=== PATIENT | female | born 1935 | race Caucasian/White ===

== ENCOUNTER 2022-04-24 11:14 | Outpatient (CLI) | payer MEDICARE, SELFPAY ==
--- NOTE | 2022-04-24 11:42 | ECG_ITS ---
Measurements Intervals [place] Rate: 70 P: 2 GA: 141 QRS: -8 QRSD: 92 T: -3 QT: 362 QTc: 393 Interpretive Statements SINUS RHYTHM WITH SINUS ARRHYTHMIA BASELINE ARTIFACT LOW QRS VOLTAGE IN PRECORDIAL LEADS BORDERLINE ECG NO PREVIOUS ECG AVAILABLE FOR COMPARISON Electronically Signed On 04-24-2022 16:20:28 CDT by Baldemar Ventura M.D.
== END 2022-04-24 11:15 | disposition home or self-care (01) ==
PROVIDERS: Visit Provider Neurological Surgery
DX: M48.061 Spinal stenosis, lumbar region without neurogenic claudication (principal); Z01.818 Encounter for other preprocedural examination
CPT/HCPCS: 36415; 86850; 86900; 86901; 93005

== ENCOUNTER 2022-05-02 15:32 | Inpatient (IN) | payer MEDICARE, SELFPAY ==
[2022-04-20 14:54] VITALS: BMI 21.2
--- NOTE | 2022-04-20 15:31 | PC.NURSE ---
Report to the Outpatient Waiting Room, entrance under the green pavilion located off [facility], at time __7:30AM on date ___05/01/22____. Planned Procedure Time: __9:30AM . Time changes happen often and if your time is changed the preop area will call you the afternoon before. - You and your visitor will be asked to self-screen and do not enter if you have any COVID symptoms. - We encourage only one visitor and NO visitors under age 16 are allowed at this time. Your visitor will receive communication by the phone number that is given day of service. - The patient visitor is requested to social distance or may leave the building when not with patient due to restrictions. - A mask is required within the hospital. Patients may have clear liquids (water, carbonated beverages, clear teas, apple juice) until 3 hours prior to surgery with a maximum of 20 ounces. - No food from midnight until time of surgery. Take the following medications with a SIP of water the morning of surgery: ___MORNING EYE DROPS Medications to discontinue per physician ___HOLD ASPIRIN PERDR ASTERS(PT STATES 7 DAYS PRE-OPA0 Date to take last dose Please no make-up, nail ghanaian, hairspray, perfume, deodorant, or body powder the day of surgery. No jewelry (including any body piercings) or valuables the day of surgery, leave them at home. Please take a shower or bath the night before, or the morning of, surgery with an antibacterial soap. Wear comfortable, loose fitting clothing. Children are encouraged to wear pajamas. - Jewelry must be removed prior to entering the operating room. Rings and piercings that are not removed may be cut off. - The hospital will not accept responsibility for valuables. - Please leave all valuables, including medications, at home the day of surgery. If you are going home after surgery, a licensed services delivery driver must drive you home. - NO public transportation without another adult. - We recommend that an adult stay with you for 24 hours following discharge. - We also recommend that you do not drive, make important decision, drink alcoholic beverages, or take any drugs that were not prescribed by your health care provider for at least 24 hours after your discharge time. For Pediatric surgeries, we recommend two adults accompany the child home. Follow any additional instructions given to you from your surgeon. If you or anyone in your household have experienced Covid symptoms in the past week, please notify your surgeon or the nurse liaison at the phone number below for possible testing. Telephone instructions given to and asked if any additional questions and then verbalized understanding. Patient advised to call surgeon office or pre surgery nurse liaison [phone] if any additional questions.
--- NOTE | 2022-04-20 15:33 | PC.NURSE ---
Report to the Outpatient Waiting Room, entrance under the green pavilion located off [facility], at time _7:30AM on date __05/01/22 . Planned Procedure Time: __9:30AM . Time changes happen often and if your time is changed the preop area will call you the afternoon before. - You and your visitor will be asked to self-screen and do not enter if you have any COVID symptoms. - We encourage only one visitor and NO visitors under age 16 are allowed at this time. Your visitor will receive communication by the phone number that is given day of service. - The patient visitor is requested to social distance or may leave the building when not with patient due to restrictions. - A mask is required within the hospital. Patients may have clear liquids (water, carbonated beverages, clear teas, apple juice) until 3 hours prior to surgery with a maximum of 20 ounces. - No food from midnight until time of surgery. Take the following medications with a SIP of water the morning of surgery: ___MORNING EYE DROPS Medications to discontinue per physician __HOLD ASPIRIN PER DR TREVIÑO(PT STATES -7 DAYS PRE-OP)___HOLD VITAMINS/SUPPLEMENTS 3 DAYS PRE-OP- LAST DOSE 04/28/22 Please no make-up, nail georgian, hairspray, perfume, deodorant, or body powder the day of surgery. No jewelry (including any body piercings) or valuables the day of surgery, leave them at home. Please take a shower or bath the night before, or the morning of, surgery with an antibacterial soap. Wear comfortable, loose fitting clothing. Children are encouraged to wear pajamas. - Jewelry must be removed prior to entering the operating room. Rings and piercings that are not removed may be cut off. - The hospital will not accept responsibility for valuables. - Please leave all valuables, including medications, at home the day of surgery. If you are going home after surgery, a licensed long haul truck driver must drive you home. - NO public transportation without another adult. - We recommend that an adult stay with you for 24 hours following discharge. - We also recommend that you do not drive, make important decision, drink alcoholic beverages, or take any drugs that were not prescribed by your health care provider for at least 24 hours after your discharge time. Follow any additional instructions given to you from your surgeon. If you or anyone in your household have experienced Covid symptoms in the past week, please notify your surgeon or the nurse liaison at the phone number below for possible testing. Telephone instructions given to __PATIENT and asked if any additional questions and then verbalized understanding. Patient advised to call surgeon office or pre surgery nurse liaison [phone] if any additional questions.
[2022-05-01] VITALS (13 sets, daily range): BP systolic 84–166; BP diastolic 52–84; PULSE 57–74; RESP 12–18; TEMP 36.2–37.1; O2SAT 97–100; BMI 22.1
[2022-05-01] MEDS: LACTATED RINGERS 1,000 ML 30 ML IV CONT ×2 (08:46→12:32)
--- NOTE | 2022-05-01 09:02 | PM.IMHP ---
H&P: HPI History of Present Illness Date/Time: 05/01/22 09:02 Chief Complaint: Back and leg pain Narrative: Sary is an 86-year-old female with back and leg pain related to foraminal stenosis on the right at L4-5 and L5-S1 who presents for far lateral foraminotomies and microdiskectomies at those levels. She has not changed appreciably since we saw her last. She does not have specific muscle group weakness. She has occasional dermatomal numbness. She is not having new bowel or bladder difficulty. Review of Systems Review of Systems: Patient denies shortness of breath, cough, fever, chills, nausea, vomiting, weight loss, weight gain, chest pain, dysuria. She has back and leg pain as above. Review of systems otherwise negative on 12 systems except as noted elsewhere. [facility] Past Medical History Medical History Basal cell carcinoma Carpal tunnel syndrome Surgical History Surgical History H/O: hysterectomy Previous back surgery Family History Family History Other Depression Diabetes mellitus Heart disease Social History Social History Smoking status: Never smoker Alcohol intake: never Substance use: never Substance use type: does not use Living arrangements: alone Spiritual care concerns: No Meds Home Medications and Allergies Home Medications Medication Instructions Recorded Confirmed Type aspirin 325 mg tablet 325 mg PO DAILY 01/23/22 04/20/22 History bacitracin zinc 500 unit/gram 1 applic topical BID 01/23/22 04/20/22 History topical ointment gabapentin 300 mg capsule 300 mg PO BID 01/23/22 04/20/22 History latanoprost 0.005 % eye drops 1 drp EACH EYE DAILY 01/23/22 05/01/22 History levobunolol 0.5 % eye drops 1 drp EACH EYE DAILY 01/23/22 05/01/22 History melatonin 3 mg capsule 3 mg PO QHS 01/23/22 04/20/22 History naproxen sodium 220 mg capsule 220 mg PO BID PRN Pain 01/23/22 04/20/22 History (Aleve) omega 2-gok-lbe-fish oil 300 1 cap PO DAILY 01/23/22 04/20/22 History mg-1,000 mg capsule (Fish Oil) coenzyme Q10 100 mg capsule 100 mg PO DAILY 04/20/22 04/20/22 History (CoQ-10) lisinopril 5 mg tablet 5 mg PO HS 04/20/22 04/20/22 History magnesium oxide 250 mg PO DAILY 04/20/22 04/20/22 History rosuvastatin 20 mg tablet 20 mg PO DAILY 04/20/22 04/20/22 History vitamin E (dl, acetate) 180 mg 180 mg PO DAILY 04/20/22 04/20/22 History (400 unit) capsule zinc gluconate 50 mg tablet 50 mg PO DAILY 04/20/22 04/20/22 History Allergies Allergy/AdvReac Type Severity Reaction Status Date / Time codeine AdvReac Mild nausea/vomi Verified 05/01/22 08:46 ting Vital Signs Vital Signs - 24 hr 05/01/22 08:42 Temperature 98.7 F Pulse Rate 73 Respiratory Rate 14 Blood Pressure 158/80 H Pulse Oximetry 100 Oxygen Delivery Room Air Exam Neuro: Other: Strength is 5/5 in all muscle groups of the bilateral lower extremities. Sensation is intact to light touch throughout the lower extremities. Clear to auscultation Regular rate and rhythm Assessment and Plan Assessment and plan (1) Foraminal stenosis of lumbar region: Code(s): M48.061 - Spinal stenosis, lumbar region without neurogenic claudication Status: Acute Plan Sary is an 86-year-old female who presents for right L4-5 and L5-S1 far lateral foraminotomy and microdiskectomy. I described to her again that operation, its risks, potential benefits, the operative and postoperative course in detail answered all her questions personally. She indicates understanding and elects to proceed with that operation.
--- NOTE | 2022-05-01 09:03 | WPDHPUPDATE1 ---
History and Physical Update Update Date/Time: 05/01/22 09:03 History and Physical has been reviewed, including an updated exam of the patient. There are NO changes in the patient's condition. Risks, benefits, and alternatives have been discussed and questions answered. Patient agrees to proceed with procedure.
--- NOTE | 2022-05-01 09:08 | WPDANESEPPF ---
Anes - Initial Pre Proc Eval Procedure: Operation Date: 05/01/22 09:30 Proposed Procedures p Right L4-5, L5-S1 Far Lateral Foraminotomy - Maximo Lester MD Date/Time: 05/01/22 09:08 Surgeon: Maximo Lester MD Pre Op Diagnosis: Rt L4-5 L5-S1 NFN Patient Data Age: 86 Gender: F Height: 1.47 m Weight: 48 kg Last Vital Signs Temp 37.1 C 05/01/22 08:42 Pulse 73 05/01/22 08:42 Resp 14 05/01/22 08:42 BP 158/80 H 05/01/22 08:42 Pulse Ox 100 05/01/22 08:42 O2 Del Method Room Air 05/01/22 08:42 Allergies Allergy/AdvReac Type Severity Reaction Status Date / Time codeine AdvReac Mild nausea/vomi Verified 05/01/22 08:46 ting Home Medications Medication Instructions Recorded Confirmed Type aspirin 325 mg tablet 325 mg PO DAILY 01/23/22 04/20/22 History bacitracin zinc 500 unit/gram 1 applic topical BID 01/23/22 04/20/22 History topical ointment gabapentin 300 mg capsule 300 mg PO BID 01/23/22 04/20/22 History latanoprost 0.005 % eye drops 1 drp EACH EYE DAILY 01/23/22 05/01/22 History levobunolol 0.5 % eye drops 1 drp EACH EYE DAILY 01/23/22 05/01/22 History melatonin 3 mg capsule 3 mg PO QHS 01/23/22 04/20/22 History naproxen sodium 220 mg capsule 220 mg PO BID PRN Pain 01/23/22 04/20/22 History (Aleve) omega 1-hdi-urx-fish oil 300 1 cap PO DAILY 01/23/22 04/20/22 History mg-1,000 mg capsule (Fish Oil) coenzyme Q10 100 mg capsule 100 mg PO DAILY 04/20/22 04/20/22 History (CoQ-10) lisinopril 5 mg tablet 5 mg PO HS 04/20/22 04/20/22 History magnesium oxide 250 mg PO DAILY 04/20/22 04/20/22 History rosuvastatin 20 mg tablet 20 mg PO DAILY 04/20/22 04/20/22 History vitamin E (dl, acetate) 180 mg 180 mg PO DAILY 04/20/22 04/20/22 History (400 unit) capsule zinc gluconate 50 mg tablet 50 mg PO DAILY 04/20/22 04/20/22 History Patient hx anesthesia problems: none Family hx anesthesia problems: none Results Review: All pre-operative results and documents have been reviewed as part of the pre-operative evaluation. [facility] Past Medical History Medical History (Updated 05/01/22 @ 09:08 by Madhu Mccormack MD) Basal cell carcinoma Carpal tunnel syndrome Chronic back pain Melanoma Surgical History Surgical History H/O: hysterectomy Previous back surgery Family History Family History Other Depression Diabetes mellitus Heart disease Social History Social History Smoking status: Never smoker Alcohol intake: never Substance use: never Substance use type: does not use Living arrangements: alone Spiritual care concerns: No Anes - Eval Final PreProcedure Day of Procedure 05/01/22 09:08 Patient weight: normal Heart: regular rate and rhythm Lungs: clear to auscultation Airway: Mallampati scale class II Neurological: alert and oriented Last oral intake: >/= 8 hours ASA classification: III Emergent: no Anesthetic plan: proceed Anesthesia type and monitoring: general ETT and standard monitoring Results Review: All pre-operative results and documents have been reviewed as part of the pre-operative evaluation. Informed Consent: The patient's anesthetic plan and its attendant risks and benefits were discussed with the patient/family/POA. Questions were solicited and answers provided to the satisfaction of the patient/family/POA.
[2022-05-01] MEDS: ceFAZolin 2 GM/D5W 50 ML 2 GM/50 ML BAG IVPB (09:32)
[2022-05-01] MEDS: BUPIVACAINE/EPINEPHRINE 0.25% 50 ML VIAL INFILTRATE (10:25)
--- NOTE | 2022-05-01 12:19 | W.PM.PROC2 ---
Procedure Note - Detailed Date of Procedure 05/01/22 Pre-op Diagnosis Right L4-5 neural foraminal stenosis and L4-5 and L5-S1 lateral recess stenosis Post-op Diagnosis Same Procedure Performed Right L4-5 hemilaminectomy and right L4-5 far lateral foraminotomy and microdiskectomy Surgeon Maximo Lester MD Supervisor Cigar Making Machine Dr. Miguel A Templeton Anesthesia General Indications Sary is an 86-year-old female with back and right lower extremity pain most likely related to the L4-5 foraminal stenosis and compression on the exiting L5 nerve root. She likely has pars defects at the level but is deemed too frail to undergo fusion. She presents for decompression. Because of anatomical concerns, the patient's specific symptoms and findings at the time surgery the surgery was adapted to hemilaminectomy and far-lateral foraminotomy. This was discussed with the family during the case. Description of Procedure Patient was brought to the operating room in the supine position, was sedated, intubated and placed under general anesthesia in routine fashion. She was then turned into the prone position on a Karan frame. The area of operation on her back was examined, marked for incision, prepped and draped in routine sterile fashion. Incision was marked over the L4 through S1 spinous processes in the midline. This area was injected with 0.5% lidocaine with [id number] epinephrine. Intravenous antibiotics given prior to incision. Incision was made with a 10 blade scalpel down to the lumbodorsal fascia. A subperiosteal dissection of the muscle soft tissue away from the spinous process and lamina at L4 through S1 was performed with a subperiosteal elevator and Bovie cautery. A verifying x-rays obtained to verify the level of operation. The L4-L5 oj lamina were removed with the Midas Catalino drill with an a.m. 8 bit. The pars defect at L5 was noted. Medial facetectomy was also performed in this fashion. Kerrison punches and curved curettes lifted and removed overgrown bone and ligament in the lateral recess. The pedicle at L 5 was palpated. Multiple radiographs were necessary to determine the exact localization. The anatomy was quite difficult to decipher. At L5-S1 on the right Midas-Catalino drill was used to perform a lateral resection of the pars and facet to the soft contents of the foramen were encountered. Soft tissue overlying the nerve and disc were removed using Kerrison punches and curved curettes. The disc space was identified and entered using an 11 blade scalpel. An Rosas curette, curved curette and Denis rongeur were used to push free and removed fragments of herniated disc both hard and soft. The sleep decompression of the nerve was achieved and the nerve was identified. Lack of compression was confirmed using a Daggett instrument proximally and distally in both the medial and lateral epidural space as well as above and below the nerve in the foramen. The wound was copiously irrigated with bacitracin irrigation all bleeding stopped with bipolar and Bovie cautery the thrombin powder. The wound was then closed in layered fashion with 2-0 Vicryl interrupted sutures in the lumbodorsal fascia and Ximena's layer. 3-0 Vicryl buried interrupted sutures were placed in the dermis and the skin was closed with a running 4-0 Monocryl subcuticular stitch and dressed with Dermabond. The patient was allowed to wake up in the operating room and was taken to the recovery room in stable condition. There were no immediate complications of this operation. All counts were reported correct at the end of the case. Blood loss was 50 cc. The patient was neurologically at her baseline postoperatively. Estimated Blood Loss 50 IV Fluids 1,000 Complications None Condition Stable Disposition PACU [facility] Billing Surgery - Charge Forward: Surgery Billing
--- NOTE | 2022-05-01 14:00 | ADMGEN ---
This patient, Sary Espinoza, was admitted to Medical Room 341-01. Patient/family oriented to hospital policies and general routines including ID bracelet, bed and alarms, visiting hours, pain management, procedures, bathroom and other care routines, personal items, smoking policy, room service/diet, and visiting hours. Information on how to activate the Rapid Response Team has been discussed. Patient/Family are encouraged to report perceived risks to care and to ask questions if they do not understand what they are told or what they should do.
--- NOTE | 2022-05-01 16:08 | SUR.OPER ---
0940: After patient was intubated, before incision, Dr. Lester decided to add L4-5 hemilaminectomy to procedure. Family was called by Dr. Lester and verbal consent obtained.
[2022-05-01] MEDS: HYDROcodone/acetaminophen (*CRX) 10-325 MG TABLET 1 TAB PO (18:07)
[2022-05-01] MEDS: BACITRACIN OINTMENT 15 GM TUBE 1 APPLIC TOPICAL (18:10)
[2022-05-01] MEDS: GABAPENTIN 300 MG CAPSULE PO (18:10)
[2022-05-01] MEDS: KCL 20 MEQ/D5/0.45% SOD CHL 1,000 ML 100 ML IV CONT (18:16)
[2022-05-01] MEDS: ROSUVASTATIN 10 MG TABLET 20 MG PO (20:55)
[2022-05-01] MEDS: DOCUSATE SODIUM 100 MG CAPSULE PO (20:55)
[2022-05-01] MEDS: MELATONIN 3 MG TABLET PO (20:55)
[2022-05-02] VITALS (9 sets, daily range): BP systolic 75–103; BP diastolic 46–57; PULSE 60–73; RESP 14–18; TEMP 36.5–36.8; O2SAT 96–99
--- NOTE | ~2022-05-02 | XR_ITS ---
EXAMINATION: XR fluoroscopy no charge DATE: 05/01/2022 9:45 CDT INDICATION: L4-L5 HEMILAMI L4-5LUMBAR LATERAL FORAMINOTOMY . TECHNIQUE: 3 fluoroscopic images of the lumbar spine were obtained during L4-L5 hemilaminectomy, L4-5 lumbar lateral foraminotomy performed by the surgeon. I was not present in the operating room. Fluor oscopy exposure time was 12 seconds. Air Kerma 3.5686 mGy. DAP 0.0707 mGym2. COMPARISON: None FINDINGS: Lateral views of the lumbar spine demonstrate instrument localization of the posterior elements of L4 and L5, L5 and S1, as well as the L5 vertebral body. IMPRESSION: Fluoroscopic documentation of L4-L5 hemilaminectomy with L4-5 lumbar lateral foraminotomy. Please ref er to the operative note for complete procedural details . Reviewed, dictated and finalized at location K. IMPRESSION: Fluoroscopic documentation of L4-L5 hemilaminectomy with L4-5 lumbar lateral fo raminotomy. Please refer to the operative note for complete procedural details .
[2022-05-02] MEDS: SODIUM CHLORIDE 0.9% IV 500 ML IV CONT (00:22)
--- NOTE | 2022-05-02 04:35 | PM.IMCN ---
Assessment and Plan Assessment and plan (1) Hypotension: Code(s): I95.9 - Hypotension, unspecified Status: Acute Assessment and Plan: appears asymptomatic, mainly occurred while patient was sleeping, will discontinue lisinopril and give 500 mL bolus, suspect this is physiologic hypotension and not related to any signs of early infection, will check labs and monitor closely to confirm (2) Hyperlipidemia: Code(s): E78.5 - Hyperlipidemia, unspecified Status: Acute (3) Hypertension: Code(s): I10 - Essential (primary) hypertension Status: Acute Assessment and Plan: suspect this does not need to be treated, will discontinue lisinopril and recommend not restarting at discharge (4) Foraminal stenosis of lumbar region: Code(s): M48.061 - Spinal stenosis, lumbar region without neurogenic claudication Status: Acute Assessment and Plan: postop day 1 L4/L5 laminectomy/microdiskectomy per Neurosurgery, will defer anticoagulation to the primary team, for pain management will give IV Tylenol for now until blood pressure improves a bit Plan DVT prophylaxis with SCDs GI prophylaxis not indicated Code status full code HPI Data of Consult Consult date: 05/02/22 Requesting Physician: Maximo Lester MD Primary Care Provider: PHYSICIAN NOT ON STAFF Consult Narrative Reason for consult: hypotension Narrative: Sary Espinoza is a 86 year old female with PMH HTN, HLD, 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 Given 500 ml bolus with some improvement. No labs or imaging available, VSS. Patient states she has fairly low BP at baseline and never sees a number over 130 at home, but when she saw the gaming manager for a stress test she was very nervous and thinks she got white coat syndrome and her BP went up so much they started her on lisinopril and recommended a statin for HLD. The patient would like to be off both of these medications. Because of her hypotension, she has not been able to receive any of her pain meds. She denies CP/SOB/NVD, constipation, dysuria, fevers, chills. Neurosurgery is primary and hospitalist team was consulted for hypotension and medical management. PT/OT consult pending, care coordination to assist with d/c planning. PMF[facility] Past Medical History Medical History Basal cell carcinoma Carpal tunnel syndrome Chronic back pain Hyperlipidemia Hypertension Melanoma Surgical History Surgical History H/O: hysterectomy Previous back surgery Family History Family History Other Depression Diabetes mellitus Heart disease Social History Social History Smoking status: Never smoker Alcohol intake: never Substance use: never Substance use type: does not use Has the Lack of Transportation Kept You From Medical Appointments or From Getting Medications?: No Within the Past 12 Months, Were You Worried Whether Your Food Would Run Out Before You Got Money to Buy More?: Never True What is Your Housing Situation Today?: I Have Housing Are You Worried That in the Next 2 Months, You May Not Have Your Own Housing to Live In?: No Do You Have Trouble Paying Your Heating Or Electricity Bill?: No Do You Have Trouble Paying For Medicines?: No Are You Currently Unemployed and Looking for Work?: No Highest Level of Education Completed: Trade/Vocational Certificate Do You Have Trouble With Childcare or the Care of a Family Member?: No Living arrangements: alone Spiritual care concerns: No Meds Home Medications and Allergies Home Medications Medication Instructions Recorded Confirmed Type aspir
[2022-05-02] MEDS: SODIUM CHLORIDE 0.9% IV 1,000 ML 500 ML IV CONT (04:55)
[2022-05-02 05:46] LABS: Basophils Percent Auto 0.1 % (0.2-1.2); Hematocrit 25.8 % (37.0-47.0); Hemoglobin 8.1 g/dL (12.0-15.0); Immature Granulocyte Absolute 0.07 K/mm3 (0.00-0.031); Immature Granulocyte Percent A 0.5 % (0-0.5); Lymphocytes Absolute Auto 1.55 K/mm3 (0.9-3.2); Lymphocytes Percent Auto 12.1 % (18.3-44.2); Mean Corpuscular HGB Conc 31.4 g/dl (32-36); Mean Corpuscular Hemoglobin 30.9 pg (26-34); Mean Corpuscular Volume 98.5 fl (80-100); Mean Platelet Volume 9.7 fl (7.4-10.4); Monocytes Percent Auto 7.6 % (2.6-8.5); Neutrophils Absolute Auto 10.2 K/mm3 (1.3-6.7); Neutrophils Percent Auto 79.7 % (45.5-73.1); Platelet Count Result 203 k/mm3 (150-375); Red Blood Count 2.62 M/mm3 (4.2-5.4); Red Cell Distribution Width 14.9 % (11.5-14.5); White Blood Count 12.8 K/mm3 (4.5-10.0)
[2022-05-02 05:58] LABS: Alanine Aminotransferase 20 U/L (6-35); Albumin Level 2.8 g/dL (3.5-5.1); Alkaline Phosphatase 44 U/L (38-126); Anion Gap 10 mmol/L (8-16); Aspartate Amino Transferase 24 U/L (14-36); Bilirubin,Total 0.2 mg/dL (0.2-1.3); Blood Urea Nitrogen 19 mg/dL (7-17); Calcium 7.6 mg/dL (8.4-10.2); Carbon Dioxide 23 mmol/L (22-30); Chloride 102 mmol/L (98-107); Estimated Glomerular Filt Rate > 60; Glucose 141 mg/dL (65-110); Potassium 4.1 mmol/L (3.4-5.0); Sodium 135 mmol/L (137-145)
[2022-05-02] MEDS: KCL 20 MEQ/D5/0.45% SOD CHL 1,000 ML 100 ML IV CONT ×2 (06:56→20:43)
[2022-05-02] MEDS: MAGNESIUM OXIDE 200 MG TABLET PO (08:20)
[2022-05-02] MEDS: BACITRACIN OINTMENT 15 GM TUBE 1 APPLIC TOPICAL ×2 (08:20→17:45)
[2022-05-02] MEDS: VITAMIN E 400 UNIT CAPSULE PO (08:21)
[2022-05-02] MEDS: ZINC SULFATE 220 MG CAPSULE PO (08:21)
[2022-05-02] MEDS: GABAPENTIN 300 MG CAPSULE PO ×2 (08:22→17:45)
[2022-05-02] MEDS: DOCUSATE SODIUM 100 MG CAPSULE PO ×2 (08:23→20:43)
[2022-05-02] MEDS: LATANOPROST 0.005% OP SOLN 2.5 ML BTL 1 DROP EACH EYE (08:24)
[2022-05-02] MEDS: HYDROcodone/acetaminophen (*CRX) 5-325 MG TABLET 1 TAB PO (12:43)
--- NOTE | 2022-05-02 14:15 | WPDANESPN ---
Anes - Prog Note Post-Op Date/Time: 05/02/22 14:15 Cardiovascular status: normal Respiratory status: normal Airway patency: baseline Mental status: baseline Post-Op hydration status: normal Vital Signs: Last Vital Signs Temp 36.8 C 05/02/22 08:44 Pulse 68 05/02/22 08:44 Resp 14 05/02/22 08:44 BP 100/57 L 05/02/22 08:44 Pulse Ox 99 05/02/22 08:44 O2 Del Method Room Air 05/02/22 08:00 O2 Flow Rate 2 05/01/22 13:30 Pain Score (VAS): 0 I/O: Intake & Output 05/01/22 05/02/22 05/02/22 23:59 07:59 15:59 Intake Total 340 2500 460 Output Total 600 Balance 340 1900 460 Laboratory Tests 05/02/22 05:31 05/02/22 05:31 05/02/22 05/02/22 05:31 05:31 WBC 12.8 H RBC 2.62 L Hgb 8.1 L Hct 25.8 L MCV 98.5 MCH 30.9 MCHC 31.4 L RDW 14.9 H Plt Count 203 MPV 9.7 Immature Gran % (Auto) 0.5 Neut % (Auto) 79.7 H Lymph % (Auto) 12.1 L Bullitt % (Auto) 7.6 Eos % (Auto) 0.0 Baso % (Auto) 0.1 L Lymph # (Auto) 1.55 [place] # (Auto) 1.0 H Eos # (Auto) 0.0 Baso # (Auto) 0.0 Abs Immat Gran (auto) 0.07 H Absolute Neuts (auto) 10.2 H Absolute Nucleated RBC 0.0 Nucleated RBC % 0.0 Sodium 135 L Potassium 4.1 Chloride 102 Carbon Dioxide 23 Anion Gap 10 BUN 19 H Creatinine 0.70 Estim Creat Clear Calc Not Reportable Estimated GFR > 60 Glucose 141 H Calcium 7.6 L Total Bilirubin 0.2 AST 24 ALT 20 Alkaline Phosphatase 44 Total Protein 5.0 L Albumin 2.8 L Post-procedural complaints: none Patient Feedback: Patient satisfied with anesthetic care.
--- NOTE | 2022-05-02 17:36 | PM.IMPN ---
Progress Note: A&P Assessment and Plan (1) Hypotension: Code(s): I95.9 - Hypotension, unspecified Status: Acute Assessment and Plan: appears asymptomatic, mainly occurred while patient was sleeping, will discontinue lisinopril and give 500 mL bolus, suspect this is physiologic hypotension and not related to any signs of early infection, will check labs and monitor closely to confirm 05/02/2022 interval history, on 05/01/2022 patient s/p L4-L5 laminectomy/microdiskectomy develoed hypotension into the 80s systolic, most likely due to anesthesia, and dehyration, patient was hydrated and her BP is improving, stats feeling better now, will monitor and further recommendation from her surgeon and will monitor. (2) Hyperlipidemia: Code(s): E78.5 - Hyperlipidemia, unspecified Status: Acute (3) Hypertension: Code(s): I10 - Essential (primary) hypertension Status: Acute Assessment and Plan: suspect this does not need to be treated, will discontinue lisinopril and recommend not restarting at discharge (4) Foraminal stenosis of lumbar region: Code(s): M48.061 - Spinal stenosis, lumbar region without neurogenic claudication Status: Acute Assessment and Plan: postop day 1 L4/L5 laminectomy/microdiskectomy per Neurosurgery, will defer anticoagulation to the primary team, for pain management will give IV Tylenol for now until blood pressure improves a bit Plan DVT prophylaxis with SCDs GI prophylaxis not indicated Code status full code Subjective Date/time seen: 05/02/22 17:36 Narrative: Sary Espinoza is a 86 year old female with PMH HTN, HLD, 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 Given 500 ml bolus with some improvement. No labs or imaging available, VSS. Patient states she has fairly low BP at baseline and never sees a number over 130 at home, but when she saw the applications intern for a stress test she was very nervous and thinks she got white coat syndrome and her BP went up so much they started her on lisinopril and recommended a statin for HLD. The patient would like to be off both of these medications. Because of her hypotension, she has not been able to receive any of her pain meds. She denies CP/SOB/NVD, constipation, dysuria, fevers, chills. Neurosurgery is primary and hospitalist team was consulted for hypotension and medical management. PT/OT consult pending, care coordination to assist with d/c planning. 05/02/2022 interval history, on 05/01/2022 patient s/p L4-L5 laminectomy/microdiskectomy develoed hypotension into the 80s systolic, most likely due to anesthesia, and dehyration, patient was hydrated and her BP is improving, stats feeling better now, will monitor and further recommendation from her surgeon and will monitor. Review of Systems Review of Systems: Patient denies shortness of breath, cough, fever, chills, nausea, vomiting, weight loss, weight gain, chest pain, dysuria. She has back and leg pain as above. Review of systems otherwise negative on 12 systems except as noted elsewhere. Exam Narrative: elderly frail Patient is comfortable, NAD HEENT: eyes are clear and none icteric LUNGS: normal respiratory effort ABD: not distended Lower extremities: no edema SKIN: nonjaundiced Neuro: grossly intact. Objective Data Vital Signs Vital Signs: Vital Signs - 24 hr 05/01/22 17:55 05/01/22 20:44 05/01/22 20:00 Temperature 97.7 F 97.8 F Pulse Rate 74 60 60 Respiratory Rate 16 16 16 Blood Pressure 116/66 84/54 L Pulse Oximetry 97 99 99 Oxygen Delivery Room Air 05/01/22 22:00 05/02/22 00:02 05/02/22 02:02 Temperature 98.1 F 97.8 F 97.9 F Pulse Rate 68 64 62 Respiratory Rate 16 14 18 Blood Pressure 90/52 L 75/54 L 91/46 L Pulse Oximetry 99 96 96 Oxygen Delivery 05/02/22 04:12 05/02/22 04:44 05/02/22 0
[2022-05-02] MEDS: ROSUVASTATIN 10 MG TABLET 20 MG PO (20:43)
[2022-05-02] MEDS: MELATONIN 3 MG TABLET PO (20:43)
[2022-05-03 04:10] VITALS: BP 135/64; PULSE 73; RESP 18; TEMP 37; O2SAT 100
[2022-05-03] MEDS: HYDROcodone/acetaminophen (*CRX) 10-325 MG TABLET 1 TAB PO (06:08)
[2022-05-03 06:10] LABS: Basophils Percent Auto 0.2 % (0.2-1.2); Eosinophils Absolute Auto 0.1 K/mm3 (0-0.3); Eosinophils Percent Auto 0.8 % (0-4.4); Hematocrit 27.9 % (37.0-47.0); Hemoglobin 8.6 g/dL (12.0-15.0); Immature Granulocyte Absolute 0.04 K/mm3 (0.00-0.031); Immature Granulocyte Percent A 0.4 % (0-0.5); Lymphocytes Absolute Auto 1.32 K/mm3 (0.9-3.2); Lymphocytes Percent Auto 13.7 % (18.3-44.2); Mean Corpuscular HGB Conc 30.8 g/dl (32-36); Mean Corpuscular Hemoglobin 30.6 pg (26-34); Mean Corpuscular Volume 99.3 fl (80-100); Mean Platelet Volume 10.4 fl (7.4-10.4); Monocytes Absolute Auto 0.8 K/mm3 (0.1-0.6); Monocytes Percent Auto 7.8 % (2.6-8.5); Neutrophils Absolute Auto 7.4 K/mm3 (1.3-6.7); Neutrophils Percent Auto 77.1 % (45.5-73.1); Platelet Count Result 173 k/mm3 (150-375); Red Blood Count 2.81 M/mm3 (4.2-5.4); White Blood Count 9.6 K/mm3 (4.5-10.0)
[2022-05-03] MEDS: KCL 20 MEQ/D5/0.45% SOD CHL 1,000 ML 100 ML IV CONT (06:11)
[2022-05-03 08:04] LABS: Alanine Aminotransferase 17 U/L (6-35); Alkaline Phosphatase 46 U/L (38-126); Anion Gap 7 mmol/L (8-16); Aspartate Amino Transferase 27 U/L (14-36); Bilirubin,Total 0.3 mg/dL (0.2-1.3); Blood Urea Nitrogen 9 mg/dL (7-17); Calcium 7.8 mg/dL (8.4-10.2); Carbon Dioxide 24 mmol/L (22-30); Chloride 102 mmol/L (98-107); Estimated Glomerular Filt Rate > 60; Glucose 106 mg/dL (65-110); Potassium 4.3 mmol/L (3.4-5.0); Sodium 133 mmol/L (137-145)
[2022-05-03] MEDS: LATANOPROST 0.005% OP SOLN 2.5 ML BTL 1 DROP EACH EYE (08:31)
[2022-05-03] MEDS: BACITRACIN OINTMENT 15 GM TUBE 1 APPLIC TOPICAL (08:31)
[2022-05-03] MEDS: MAGNESIUM OXIDE 200 MG TABLET PO (08:33)
[2022-05-03] MEDS: ZINC SULFATE 220 MG CAPSULE PO (08:33)
[2022-05-03] MEDS: VITAMIN E 400 UNIT CAPSULE PO (08:33)
[2022-05-03] MEDS: DOCUSATE SODIUM 100 MG CAPSULE PO (08:33)
[2022-05-03] MEDS: GABAPENTIN 300 MG CAPSULE PO (08:33)
[2022-05-03] MEDS: LIDOCAINE 5% PATCH 1 PATCH TRANSDERM (08:35)
[2022-05-03 14:00] VITALS: BP 122/64; PULSE 67; RESP 16; TEMP 35.9; O2SAT 97
--- NOTE | 2022-05-03 14:40 | PM.IMPN ---
Progress Note: A&P Assessment and Plan (1) Hypotension: Code(s): I95.9 - Hypotension, unspecified Status: Acute Assessment and Plan: appears asymptomatic, mainly occurred while patient was sleeping, will discontinue lisinopril and give 500 mL bolus, suspect this is physiologic hypotension and not related to any signs of early infection, will check labs and monitor closely to confirm 05/03/2022 interval history, on 05/01/2022 patient s/p L4-L5 laminectomy/microdiskectomy develoed hypotension into the 80s systolic, most likely due to anesthesia, and dehyration, patient was hydrated and her BP is improving, today patient was able to ambulate with physical therapy without any difficulty, stats feeling better now, will monitor and further recommendation from her surgeon and possibly discharge today. (2) Hyperlipidemia: Code(s): E78.5 - Hyperlipidemia, unspecified Status: Acute (3) Hypertension: Code(s): I10 - Essential (primary) hypertension Status: Acute Assessment and Plan: suspect this does not need to be treated, will discontinue lisinopril and recommend not restarting at discharge (4) Foraminal stenosis of lumbar region: Code(s): M48.061 - Spinal stenosis, lumbar region without neurogenic claudication Status: Acute Assessment and Plan: postop day 1 L4/L5 laminectomy/microdiskectomy per Neurosurgery, will defer anticoagulation to the primary team, for pain management will give IV Tylenol for now until blood pressure improves a bit Plan DVT prophylaxis with SCDs GI prophylaxis not indicated Code status full code Subjective Date/time seen: 05/03/22 14:40 05/03/2022 interval history, on 05/01/2022 patient s/p L4-L5 laminectomy/microdiskectomy develoed hypotension into the 80s systolic, most likely due to anesthesia, and dehyration, patient was hydrated and her BP is improving, today patient was able to ambulate with physical therapy without any difficulty, stats feeling better now, will monitor and further recommendation from her surgeon and possibly discharge today. Exam Narrative: elderly frail Patient is comfortable, NAD HEENT: eyes are clear and none icteric LUNGS: normal respiratory effort ABD: not distended Lower extremities: no edema SKIN: nonjaundiced Neuro: grossly intact. Objective Data Vital Signs Vital Signs: Vital Signs - 24 hr 05/02/22 19:52 05/02/22 20:00 05/03/22 04:10 Temperature 97.8 F 98.6 F Pulse Rate 73 73 73 Respiratory Rate 16 16 18 Blood Pressure 94/55 L 135/64 Pulse Oximetry 99 99 100 Oxygen Delivery Room Air 05/03/22 08:00 Temperature Pulse Rate Respiratory Rate Blood Pressure Pulse Oximetry Oxygen Delivery Room Air Intake/Output Intake/Output: Intake & Output 04/30/22 05/01/22 05/02/22 05/03/22 23:59 23:59 23:59 23:59 Intake Total 1540 4590 1460 Output Total 1000 800 Balance 1540 3590 660 Meds/Results Medications: Active Medications Generic Name Dose Route Start Last Admin Trade Name Freq PRN Reason Stop Dose Admin Hydrocodone Bitart/Acetaminophen 1 tab 05/01/22 13:44 05/02/22 12:43 Hydrocodone/Acetaminophen (*Crx) 5-325 Mg Tablet PO 1 tab Q4H PRN Administration Mild Pain (1-3) Hydrocodone Bitart/Acetaminophen 1 tab 05/01/22 13:44 05/03/22 06:08 Hydrocodone/Acetaminophen (*Crx) 10-325 Mg Tablet PO 1 tab Q4H PRN Administration Moderate Pain (4-6) Al Hydrox/Mg Hydrox/Simethicone 20 ml 05/01/22 13:44 Mag Hydrox/Al Hydrox/Simeth 30 Ml Udc PO Q4H PRN Indigestion/Heartburn Bacitracin 1 applic 05/01/22 17:00 05/03/22 08:31 Bacitracin Ointment 15 Gm Tube TOPICAL 1 applic BID ALCIDES Administration Bisacodyl 10 mg 05/01/22 13:44 Bisacodyl 10 Mg Suppository RECTAL DAILY PRN Constipation Cyclobenzaprine HCl 10 mg 05/01/22 13:44 Cyclobenzaprine Hcl 10 Mg Tablet PO TID PRN Muscle Spasms
--- NOTE | 2022-05-13 16:13 | PM.DS ---
DS: Admitting Diagnosis Discharge Date 05/03/22 Admitting Diagnosis s/p L4-L5 laminectomy/microdiskectomy developed hypotension DS: Discharge Diagnosis Discharge Diagnosis (1) Hypotension: Code(s): I95.9 - Hypotension, unspecified Status: Acute Assessment and Plan: appears asymptomatic, mainly occurred while patient was sleeping, will discontinue lisinopril and give 500 mL bolus, suspect this is physiologic hypotension and not related to any signs of early infection, will check labs and monitor closely to confirm 05/03/2022 interval history, on 05/01/2022 patient s/p L4-L5 laminectomy/microdiskectomy develoed hypotension into the 80s systolic, most likely due to anesthesia, and dehyration, patient was hydrated and her BP is improving, today patient was able to ambulate with physical therapy without any difficulty, stats feeling better now, will monitor and further recommendation from her surgeon and possibly discharge today. (2) Hyperlipidemia: Code(s): E78.5 - Hyperlipidemia, unspecified Status: Acute (3) Hypertension: Code(s): I10 - Essential (primary) hypertension Status: Acute Assessment and Plan: suspect this does not need to be treated, will discontinue lisinopril and recommend not restarting at discharge (4) Foraminal stenosis of lumbar region: Code(s): M48.061 - Spinal stenosis, lumbar region without neurogenic claudication Status: Acute Assessment and Plan: postop day 1 L4/L5 laminectomy/microdiskectomy per Neurosurgery, will defer anticoagulation to the primary team, for pain management will give IV Tylenol for now until blood pressure improves a bit Plan DVT prophylaxis with SCDs GI prophylaxis not indicated Code status full code DS: Summary Hospital Course Reason for hospitalization: Reason for consult: hypotension Narrative: Sary Espinoza is a 86 year old female with PMH HTN, HLD, 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 Given 500 ml bolus with some improvement. No labs or imaging available, VSS. Patient states she has fairly low BP at baseline and never sees a number over 130 at home, but when she saw the medical record assistant for a stress test she was very nervous and thinks she got white coat syndrome and her BP went up so much they started her on lisinopril and recommended a statin for HLD. The patient would like to be off both of these medications. Hospital Course: on 05/01/2022? patient s/p L4-L5 laminectomy/microdiskectomy develoed? hypotension into the 80s systolic, most likely due to anesthesia, and dehyration, patient was hydrated and her BP is improving,? today patient was able to ambulate with physical therapy without any difficulty, stats feeling better now, will monitor and further recommendation from her surgeon and possibly discharge today.? Time Spent with Patient Time attestation: Total time spent providing and/or coordinating discharge services: Exam Narrative: elderly frail Patient is comfortable, NAD HEENT: eyes are clear and none icteric LUNGS: normal respiratory effort ABD: not distended Lower extremities: no edema SKIN: nonjaundiced Neuro: grossly intact. Discharge Plan Discharge Consulting providers: Georgette Cheatham ; Chuckie De La Torre ; Diogenes Stover Discharging Clinician: Maximo Lester Patient Disposition: Home, Self-Care Activity: other - see discharge instructions Diet: regular Patient Instructions: Antibiotic Form Stand Alone Forms: General Discharge Information Follow-up/Referrals: Maximo Lester MD [Physician] - Discharge Medications: New hydrocodone-acetaminophen 5-325 mg tablet 1 - 2 tablet PO Q4H PRN (Reason: pain) Qty: 30 0RF Continued levobunolol 0.5 % drops 1 drp EACH EYE DAILY Rx Instructions: AT HS latanoprost 0.005 % drops
== END 2022-05-03 17:00 | disposition home or self-care (01) | DRG 517 ==
LOC: ANHSURGERY 15:43 → ANH3MED 15:43
PROVIDERS: Student in an Organized Health Care Education/Training Program; Admitting Provider Neurological Surgery; Visit Provider Neurological Surgery
PROC: 01NB0ZZ Release Lumbar Nerve, Open Approach (ICD-10-PCS; CPT 63005; principal; 2022-05-01 09:30)
DX: M48.061 Spinal stenosis, lumbar region without neurogenic claudication (principal); M51.26 Other intervertebral disc displacement, lumbar region; I95.9 Hypotension, unspecified; E78.5 Hyperlipidemia, unspecified; I10 Essential (primary) hypertension
CPT/HCPCS: 36415; 80053; 85025; 97161; 97165; 97530; 97535; 99199; A9270; J0131; J0690; J1100; J2405; J2704; J2710; J3480; J7030; J7040; J7120